=== PATIENT | female | born 1975 | race Asian ===

== ENCOUNTER 2017-04-24 10:19 | Emergency (ER) | payer MEDICAID ==
[~2017-04-24] VITALS: Ht 165.1 cm; Wt 51.3 kg
[2017-04-24 11:45] VITALS: BP 150/89
== END 2017-04-24 12:18 | disposition home or self-care (01) ==
LOC: ER 10:19
DX: J02.9 Acute pharyngitis, unspecified (principal); H10.32 Unspecified acute conjunctivitis, left eye

== ENCOUNTER 2017-08-09 12:16 | Emergency (ER) | payer MEDICAID ==
[~2017-08-09] VITALS: Ht 152.4 cm; Wt 54.4 kg
[2017-08-09 13:18] VITALS: BP 114/64
== END 2017-08-09 17:43 | disposition home or self-care (01) ==
LOC: ER 12:16
DX: J02.9 Acute pharyngitis, unspecified (principal); J06.9 Acute upper respiratory infection, unspecified
CPT/HCPCS: 71046; 81002

== ENCOUNTER → 2020-01-03 | Emergency (ER) | payer MEDICAID ==
[~2020-01-03] VITALS: Ht 160 cm; Wt 51.3 kg
[~2020-01-03] MED LIST: methylPREDNISolone SOD SUCC 125 MG/2 ML VL IM ONE
[2020-01-03 20:35] VITALS: BP 126/88
== END | disposition home or self-care (01) ==
LOC: ER 19:40
DX: L50.9 Urticaria, unspecified (principal)
CPT/HCPCS: 96372; 99283; J2930